=== PATIENT | male | born 1990 | race Caucasian/White ===

== ENCOUNTER 2016-09-04 15:19 | Emergency (ER) | payer SELFPAY ==
[2016-09-04 15:36] VITALS: BP 120/83; PULSE 79; RESP 16; TEMP 98; BMI 23.1
--- NOTE | 2016-09-04 15:42 | ED PDOC ---
Arrival/HPI - General Time Seen by Provider: 09/04/16 15:34 Historian: Patient - History of Present Illness Narrative History of Present Illness (Text): 09/04/16 15:39 25 y/o male, no pmh, nkda, c/o rt. eye redness and discharge started for the past 2 days. Pt. stated that he does wear contacts, no change in vision, no eye pain, no dizziness, occasional feeling dizziness, no change in vision, no fever or chills, no night sweat, no other medical or psychological complaints. Past Medical History - Provider Review Nursing Documentation Reviewed: Yes - Tetanus Immunization Tetanus Immunization: Unknown - Past Medical History Past Medical History: No Previous - Psychiatric Hx Psychophysiologic Disorder: No Hx Depression: No Hx Emotional Abuse: No Hx Physical Abuse: No Hx Substance Use: No - Past Surgical History Past Surgical History: No Previous - Surgical History Other/Comment: PLASTIC SURGERY TO NOSE. - Anesthesia Hx Anesthesia: Yes Hx Anesthesia Reactions: No Hx Malignant Hyperthermia: No - Suicidal Assessment Feels Threatened In Home Enviroment: No Family/Social History - Physician Review Nursing Documentation Reviewed: Yes Family/Social History: Unknown Family HX Smoking Status: Never Smoked Hx Alcohol Use: Yes Hx Substance Use: No Hx Substance Use Treatment: No Allergies/Home Meds Allergies/Adverse Reactions: Allergies Penicillins Allergy (Verified 09/04/16 15:37) RASH Review of Systems - Review of Systems Constitutional: absent: Fatigue, Fevers Eyes: Other (rt. eye redness and discharge). absent: Vision Changes ENT: absent: Hearing Changes Respiratory: absent: SOB, Cough Cardiovascular: absent: Chest Pain Gastrointestinal: absent: Abdominal Pain Musculoskeletal: absent: Arthralgias, Back Pain Skin: absent: Rash, Pruritis Neurological: absent: Headache, Dizziness Physical Exam Vital Signs Reviewed: Yes Vital Signs Temp Pulse Resp BP Pulse Ox 09/04/16 15:36 98.0 F 79 16 120/83 96 Temperature: Afebrile Blood Pressure: Normal Pulse: Regular Respiratory Rate: Normal Appearance: Positive for: Well-Appearing, Non-Toxic, Comfortable Pain Distress: None Mental Status: Positive for: Alert and Oriented X 3 - Systems Exam Head: Present: Atraumatic, Normocephalic Pupils: Present: PERRL, Other (Eyes: bilateral vision with correction 20/20, rt. eye correction 20/20, lt. eye correction 20/20, +rt. conjunctivitis with yellow/white color discharge, no periorbital swelling or hyphema, no subconjunctival hemorrage, FREOM without limitation, no gaze, no painful movement,. ) Extroacular Muscles: Present: EOMI Conjunctiva: Present: Normal Mouth: Present: Moist Mucous Membranes Neck: Present: Normal Range of Motion Respiratory/Chest: Present: Clear to Auscultation, Good Air Exchange. No: Respiratory Distress, Accessory Muscle Use Cardiovascular: Present: Regular Rate and Rhythm, Normal S1, S2. No: Murmurs Abdomen: Present: Normal Bowel Sounds. No: Tenderness, Distention, Peritoneal Signs Back: Present: Normal Inspection Upper Extremity: Present: Normal Inspection. No: Cyanosis, Edema Lower Extremity: Present: Normal Inspection. No: Edema Neurological: Present: GCS=15, Speech Normal, Motor Func Grossly Intact, Gait Normal, Memory Normal Skin: Present: Warm, Dry, Normal Color. No: Rashes Psychiatric: Present: Alert, Oriented x 3, Normal Insight, Normal Concentration Medical Decision Making ED Course and Treatment: 09/04/16 15:41 -Ciloxin opthalmic ordered. -Discharge home with ciloxin, DON'T wear contacts until you are clear by the opthalmologist, follow up with your own pmd and opthalmologist within 24-48 hours, return to the ER for any new or worsening signs or symptoms. - PA / [employer] / Resident Statement / has reviewed & agrees with the documentation as recorded. Disposition/Present on Arrival - Present on Arrival Any Indicators Present on Arrival: No History of DVT/PE: No History of Uncontrolled Diabetes: No Urinary Catheter: No History of Decub. Ulcer: No History Surgical Site Infection Following: None - Disposition Have Diagnosis and Disposition been Completed?: Yes Diagnosis: Conjunctivitis Disposition: HOME/ ROUTINE Disposition Time: 15:43 Patient Plan: Discharge Condition: GOOD Additional Instructions: Discharge home with ciloxin, DON'T wear contacts until you are clear by the opthalmologist, follow up with your own pmd and opthalmologist within 24-48 hours, return to the ER for any new or worsening signs or symptoms. Prescriptions: Cetirizine HCl [Zyrtec Allergy] 10 mg PO DAILY #10 sgl Ciprofloxacin 0.3% [Ciloxan 0.3% Ophth SOLN] 2 drop OD Q4 #1 bottle Referrals: Emerson Millan MD [Staff Provider] - Follow up with primary Sharron Mesa MD [Staff Provider] - Follow up with primary Forms: WORK NOTE
[2016-09-04] MEDS ORDERED: Ciprofloxacin 0.3% OPTH SOLN OD STA (15:44)
[2016-09-04 16:13] VITALS: O2SAT 99
== END 2016-09-04 16:12 | disposition home or self-care (01) ==
LOC: ED 15:19
DX: H10.9 Unspecified conjunctivitis (principal)